=== PATIENT | female | born 1970 | race Caucasian/White ===

== ENCOUNTER 2016-09-16 11:32 | Emergency (ER) | payer OTHER ==
[~2016-09-16] VITALS: Ht 170.2 cm; Wt 82.6 kg
[~2016-09-16 11:32] MED LIST: COLACE100 M1 PO; ESCITALOPRAM20 MG PO; IBUPROFEN800 M1 PO; SYNTHROID0.088 MG PO
--- NOTE | 2016-09-16 12:33 | ED GENERAL ADULT ---
History of Present Illness General Chief Complaint: General Adult Stated Complaint: JOINT PAIN AND LUMP ON NECK Source: patient Exam Limitations: no limitations Vital Signs & Intake/Output Vital Signs & Intake/Output Vital Signs Date Time Temp Pulse Resp B/P B/P Pulse O2 O2 Flow FiO2 Mean Ox Delivery Rate 09/16 1334 98.1 70 16 134/80 98 Room Air Room Air 09/16 1137 97.6 66 18 136/83 98 Room Air Room Air Allergies Coded Allergies: No Known Allergies (04/13/16) Reconcile Medications Amoxicillin 875 MG TABLET 1 TAB PO BID lymph node swelling/pain Docusate Sodium (Colace) 100 MG CAPSULE 1 CAP PO TID CONSTIPATION Escitalopram Oxalate 20 MG TAB 1 TAB PO DAILY ANXIETY (Reported) Ibuprofen 800 MG TABLET 800 MG PO Q6P PRN UTERINE CRAMPING Levothyroxine Sodium (Synthroid) 0.088 MG TAB 0.088 MG PO DAILY THYROID ( Reported) Triage Note: TRIAGE: 46 Y/O FEMALE PRESENTS C/O "SORE LUMP" TO RIGHT SIDE OF NECK. ALSO C/O ALL OVER JOINT PAIN. Triage Nurses Notes Reviewed? yes Onset: Gradual Duration: MONTHS Timing: recent history Injury Environment: home Severity: moderate, severe No Modifying Factors: none : No Patient currently breastfeeds: No HPI: 46-year-old female comes into emergency room with complaints of joint pain especially in her ankles and wrists and back as well as a lump on the right side of her neck that she noticed over the last couple days. The joint pain has been going on for many months. Patient saw her primary care doctor and had blood work drawn and was told that everything was normal. She was tested for her arthritis. She is unsure as to what else she was tested for. Patient reports that she comes in primarily today due to the pain in the right side of her neck just below her ear. Sharp. Some swelling. Denies any other swollen areas on her body. Denies any other associated symptoms. Patient gave about 4-5 months ago. Past History Travel History Traveled to [place] past 21 day No Medical History Any Pertinent Medical History? 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 No Review of Systems Review of Systems Constitutional: Reports: no symptoms. EENTM: Reports: no symptoms. Respiratory: Reports: no symptoms. Cardiovascular: Reports: no symptoms. GI: Reports: no symptoms. Genitourinary: Reports: no symptoms. Musculoskeletal: Reports: see HPI. Skin: Reports: see HPI. Neurological/Psychological: Reports: no symptoms. Hematologic/Endocrine: Reports: no symptoms. Immunologic/Allergic: Reports: no symptoms. All Other Systems: Reviewed and Negative Physical Exam Physical Exam General Appearance: well developed/nourished, no apparent distress, alert Head: atraumatic, normal appearance Eyes: Bilateral: normal appearance. Ears, Nose, Throat: normal pharynx, normal ENT inspection, hearing grossly normal Neck: full range of motion, lymphadenopathy (R), RIGHT PAROTID/CERVICAL LYMPH NODE Respiratory: normal breath sounds, no respiratory distress Cardiovascular: regular rate/rhythm Back: normal range of motion Extremities: normal inspection, normal capillary refill, normal range of motion, no edema Neurologic/Psych: awake, alert, oriented x 3, normal gait, normal mood/affect Skin: intact, normal color Core Measures ACS in differential dx? No CVA/TIA Diagnosis: No Severe Sepsis Present: No Septic Shock Present: No Progress Differential Diagnoses I considered the following diagnoses in my evaluation of the patient: Rheumatoid arthritis, osteoarthritis, lupus, autoimmune disease, multiple myeloma, lymphadenitis, strep throat, otitis media, Plan of Care: Orders Procedure Date/time Status LYME TITRE 09/16 1232 Active WESTERGREN SED RATE 09/16 1232 Complete C-REACTIVE PROTEIN 09/16 1232 Complete COMPREHENSIVE METABOLIC PANEL 09/16 1232 Complete CBC WITHOUT DIFFERENTIAL 09/16 1232 Complete Laboratory Tests 09/16/16 1238: Anion Gap 11, Estimated GFR > 60, BUN/Creatinine Ratio 23.3, Glucose 89, Calcium 9.4, Total Bilirubin 0.3, AST 26, ALT 50, Alkaline Phosphatase 85, C-Reactive Prot, Quant < 0.5, Total Protein 6.9, Albumin 4.2, Globulin 2.7, Albumin/ Globulin Ratio 1.6, CBC w Diff NO MAN DIFF REQ, RBC 4.78, MCV 87.4, MCH 29.5, RDW 13.3, MPV 7.6, Gran % 60.0, Lymphocytes % 30.2, Monocytes % 7.2, Eosinophils % 2.0, Basophils % 0.6, Absolute Granulocytes 3.6, Absolute Lymphocytes 1.8, Absolute Monocytes 0.4, Absolute Eosinophils 0.1, Absolute Basophils 0, PUBS MCHC 33.8, ESR Westergren 17, Lyme Disease Antibody Pending Initial ED EKG: none Comments: 09/16/2016 2:23:34 PM Patient clinically looks well. Nontoxic-appearing. In no apparent distress. Patient with amoxicillin for lymph node swelling. Recommended to follow-up with primary care doctor. Return if any concerns worsening symptoms. Counseled that small amount of antibiotics may be discharged and breast milk. Follow-up with PCP for further evaluation. No supraclavicular lymphadenopathy. ESR CRP and white count are normal. Patient understands and agrees a plan of care. Departure Departure Disposition: HOME OR SELF CARE Condition: Stable Clinical Impression Primary Impression: Lymphadenitis Secondary Impressions: Joint pain Referrals: HEATHER SENIOR MD (PCP/Family) Additional Instructions: Take amoxicillin as prescribed. Follow-up with your primary care doctor for further evaluation. Follow-up Lyme titer up with PCP. Please go over all results of today's visit with your primary care doctor. Contact your primary care doctor to let them know you were here in the emergency room. There may be nonspecific findings which may not be related to your visit today here in the emergency room but may require further evaluation and chronic monitoring by your primary care doctor. If you had a laceration today the chance of foreign body always remains. You should follow-up with your primary care doctor for recheck in 3-5 days for a wound check. If you had an x-ray done there is a chance that a fracture could have been missed on initial read and you should follow-up with your primary care doctor for repeat x-rays if symptoms persist. If your blood pressure was elevated here in the emergency room please have rechecked by her primary care doctor within the next 48 hours by your primary care doctor. If you were prescribed a narcotic here in the emergency room or any type of controlled substances you're not allowed to drive while taking this medication or operate any type of heavy machinery. Narcotics can make you feel lightheaded dizziness nausea and can cause constipation. You may need to miner pick a stool softener. Thank you for choosing emergency room. Please return to the emergency room immediately if you have any other concerns worsening of symptoms. Departure Forms: Customer Survey General Discharge Information Prescriptions: Current Visit Scripts Amoxicillin 1 TAB PO BID #20 TAB Critical Care Note Critical Care Note Critical Care Time: non-applicable
[2016-09-16 12:47] LABS: ABSOLUTE BASOPHIL COUNT 0 /CUMM (0.0-0.2); ABSOLUTE EOSINOPHIL COUNT 0.1 /CUMM (0.0-0.7); ABSOLUTE GRANULOCYTE CT 3.6 /CUMM (1.4-6.5); ABSOLUTE LYMPH COUNT 1.8 /CUMM (1.2-3.4); ABSOLUTE MONOCYTE COUNT 0.4 /CUMM (0.10-0.60); BASOPHIL % 0.6 % (0.0-2.0); HEMATOCRIT 41.7 % (37-47); MEAN CORPUSCULAR HGB 29.5 PG (27.0-31.0); MEAN CORPUSCULAR HGB CONC 33.8 G/DL (33.0-37.0); MEAN CORPUSCULAR VOLUME 87.4 FL (81.0-99.0); MEAN PLATELET VOLUME 7.6 FL (7.4-10.4); PLATELET COUNT 243 /CUMM (130-400); RBC DISTRIBUTION WIDTH 13.3 % (11.5-14.5); RED BLOOD CELL CT 4.78 /CUMM (4.20-5.40); WHITE BLOOD CELL COUNT 5.9 /CUMM (4.8-10.8)
[2016-09-16 13:34] VITALS: BP 134/80
[2016-09-16] MEDS ORDERED: AMOXICILLIN875 M1 PO (14:17)
== END 2016-09-16 14:26 ==
LOC: ERH 11:32
PROVIDERS: Physician Assistant Medical
DX: I88.9 Nonspecific lymphadenitis, unspecified (principal); M25.50 Pain in unspecified joint
CPT/HCPCS: 86618